=== PATIENT | female | born 1985 | race Caucasian/White ===

== ENCOUNTER 2017-10-21 20:11 | Emergency (ER) | payer MEDICAID ==
[~2017-10-21] VITALS: Ht 154.9 cm; Wt 63.0 kg
[2017-10-21 21:05] VITALS: Ht 154.9 cm; Wt 63.0 kg
[2017-10-22 00:53] VITALS: BP 107/68
== END 2017-10-22 00:53 | disposition home or self-care (01) ==
LOC: ED 20:11
DX: G89.29 Other chronic pain (principal); M54.5 Low back pain; N39.0 Urinary tract infection, site not specified
CPT/HCPCS: J1885